=== PATIENT | female | born 1950 | race African-American/Black ===

== ENCOUNTER 2021-05-16 17:44 | Observation (INO) | payer OTHER, MEDICARE ==
[~2021-05-16] VITALS: Ht 154.9 cm; Wt 75.3 kg
[2021-05-16 17:48] VITALS: BP 177/108
[2021-05-16] MEDS ORDERED: NORVASC5 MG PO (17:51)
[2021-05-16] MEDS ORDERED: LISINOPRIL20 MG PO (17:51)
[2021-05-16] MEDS ORDERED: MONTELUKAST SODI4 M1 PO (17:52)
[2021-05-16] MEDS ORDERED: DULOXETINE HCL20 MG PO (17:52)
--- NOTE | 2021-05-16 18:53 | NUR ---
PT STATES SHE IS ON HOME O2 OF 5LNC AT ALL TIMES. PT STATES SHE HAS BEEN OUT OF HER O2 FOR APPROXIMATELY 3 WEEKS D/T NOT BEING ABLE TO GET IT DELIVERED TO HER HOME.
[2021-05-16 19:14] LABS: ABSOLUTE EOSINOPHILS 0.1 thou/uL (0.0-0.7); ABSOLUTE LYMPHOCYTES 2.1 thou/uL (0.8-5.3); ABSOLUTE MONOCYTES 0.6 thou/uL (0.0-1.2); ABSOLUTE NEUTROPHILS 3.1 thou/uL (1.6-8.1); BASOPHILS 0.6 %; EOSINOPHILS 2.1 %; HEMATOCRIT 37.2 % (37.0-47.0); HEMOGLOBIN 12.3 gm/dL (12.0-15.0); LYMPHOCYTES 34.9 %; MCH 30.5 pg (26.0-34.0); MCHC 33.1 g/dL (28.0-37.0); MCV 92.3 fL (80.0-100.0); MONOCYTES 10.2 %; MPV 8.8 fl. (7.2-11.1); NUCLEATED RBCS 0 /100WBC; PLATELET COUNT* 212 thou/uL (150-400); POLYS 52.2 %; RBC 4.03 mil/uL (4.20-5.00); RDW-CV 14.3 % (10.5-14.5); WBC 5.9 thou/uL (4.0-11.0)
[2021-05-16 19:23] LABS: CALCIUM 8.8 mg/dL (8.5-10.1); CREATININE 0.8 mg/dL (0.6-1.3)
[2021-05-16 19:28] LABS: ALBUMIN 3.3 g/dL (3.4-5.0); TOTAL BILIRUBIN 0.4 mg/dL (<0.1-1.0)
[2021-05-16 23:30] VITALS: BP 145/92; BP 158/82
[2021-05-17] MEDS ORDERED: HYDROCODON-ACE1 EA11 PO (02:59)
[2021-05-17] MEDS ORDERED: SPIRONOLACTONE25 MG PO (03:00)
[2021-05-17] MEDS ORDERED: NICOTINE PATCH1 EAC3 TOP (03:02)
[2021-05-17] MEDS ORDERED: ALBUTEROL2.5 MG/0.5 INH (03:05)
[2021-05-17] MEDS ORDERED: IPRAT-ALBUT 0.5-3 ML INH (03:06)
--- NOTE | 2021-05-17 03:27 | NUR ---
PT ALERT ORIENTED X 4. ADMIT TO ROOM 227 AT 2330. HEPARIN QTT SETTINGS ADJUSTED TO 876 UNITS/HR. DOSE OF POTASSIUM GIVEN. PT REFUSED LAB DRAW FOR TROPONIN. PT TEACHING ABOUT LAB. PT STATED THEY DON'T KNOW WHAT THEY ARE DOING AROUND HERE. NEXT PTT IS AT 0600. WILL ATTEMPT TO DRAW ALL LABS AT THAT TIME. 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 DENIES PAIN AT THIS TIME. TWO OLD MEDICATION BOTTLES COLLECTED AND PLACED IN PT BIN FOR CHARTERED ACCOUNTANT BY PHARMACY IN THE AM.
[2021-05-17 08:00] VITALS: BP 169/91
[2021-05-17 09:25] LABS: ABSOLUTE LYMPHOCYTES 0.8 thou/uL (0.8-5.3); ABSOLUTE NEUTROPHILS 3.7 thou/uL (1.6-8.1); BASOPHILS 0.3 %; EOSINOPHILS 0.1 %; HEMATOCRIT 40.1 % (37.0-47.0); HEMOGLOBIN 13.1 gm/dL (12.0-15.0); LYMPHOCYTES 18.1 %; MCH 30.1 pg (26.0-34.0); MCHC 32.6 g/dL (28.0-37.0); MCV 92.4 fL (80.0-100.0); MPV 10.7 fl. (7.2-11.1); NUCLEATED RBCS 0 /100WBC; PLATELET COUNT* 226 thou/uL (150-400); POLYS 80.5 %; RBC 4.34 mil/uL (4.20-5.00); RDW-CV 14.3 % (10.5-14.5); WBC 4.6 thou/uL (4.0-11.0)
[2021-05-17 09:32] LABS: CALCIUM 8.9 mg/dL (8.5-10.1); CREATININE 0.7 mg/dL (0.6-1.3); POTASSIUM 4.1 mmol/L (3.5-5.1)
--- NOTE | 2021-05-17 10:46 | NUR ---
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 PT RESIDE AT HOME WITH HER SON. PT USES 0 DME FOR MOBILITY. PT HAS 0 HX OF HH OR SNF. NO CM D/C PLANNING NEEDS ANTICIPATED. CM WILL REMAIN AVAILABLE TO ASSIST AND FOLLOW NEEDED.
--- NOTE | 2021-05-17 11:18 | EKG ---
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 : 1950 Requested By: Henrry Helton Order Number: [id number] MD: Kevin Cardoza Measurements Intervals [place] Rate: 99 P: 59 AR: 171 QRS: -3 QRSD: 111 T: 61 QT: 409 QTc: 525 Interpretive Statements Sinus tachycardia Multiple ventricular premature complexes Probable left atrial enlargement LVH with IVCD and secondary repol abnrm Prolonged QT interval No previous ECG available for comparison Electronically Signed On 05-17-2021 11:18:11 [employer]ATION OFFICER by Kevin Cardoza [email or web address] <ELECTRONICALLY SIGNED> By: Kevin Cardoza MD, FAC 05/17/21 1118 1908 1908 Kevin Cardoza MD, [facility] /EPI
[2021-05-17 12:00] VITALS: BP 171/99
--- NOTE | 2021-05-17 14:43 | NUR ---
ASSUMED CARE OF PT AT 0730. PT A&0X4, COMPLAINED OF A HEADACHE THIS AFTERNOON-TREATED WITH PRN NORCO WITH COMPLETE RELIEF. TRACING SR/ST WITH PVC'S ON THE DIAMOND BLENDER. ON 2L NC SAT UPPER 90'S. DENIES ANY SHORTNESS OF BREATH. HEPARIN GTT INFUSING PER HEPARIN PROTOCOL. REDRAW SCHEDULED FOR 2014. PT UP SBA TO BATHROOM. CARDIO CONSULT IN PLACE. AM ASSESSMENT CHARTED. MEDICATIONS PER SEP. PT REPOSITIONS SELF. HOURLY ROUNDING OBSERVED. BED IN LOW POSITION. CALL LIGHT WITHIN REACH. WILL CONTINUE PLAN OF CARE.
--- NOTE | 2021-05-17 15:15 | CON ---
[address] [address] CONSULTATION Name: PRAVEEN STEWART Room: [place] [address] ADM IN [facility].#: [id number] Admission: 05/16/21 Attend Phys: Severino Obando Discharge: Date of : 50 Report #: [id number] THIS REPORT FOR: cc: FAM - No family physician/PCP FAM - No family physician/PCP Kevin Cardoza MD [facility] ~ DATE OF CONSULTATION: 05/17/2021 CARDIOLOGY CONSULTATION HISTORY OF PRESENT ILLNESS: The patient is a 71-year-old single black female who I was asked to see in the hospital after she had an episode of lightheadedness. The patient has no previous history of heart disease. Unfortunately, she has never been here to [facility] before. She receives her care at the [facility]. She has been a smoker for years. She currently follows with a test skein winder at the [place]. She has a nebulizer and oxygen at home. In the last several days, she has had increasing shortness of breath and cough. 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 She went to bed last night and had breakfast this morning. 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 The patient notes she was standing in the patient's home when she felt lightheaded and fell in the sofa. She called EMS and brought here to [facility] for evaluation. She denied any vomiting, diarrhea or bleeding. She denied any shaking to suggest a seizure. She does note occasional chest tightness. It is not related to exertion or meals. It tended to come and go. It is not related to food. She notes occasional episodes when her heart rate will increase, but she has had no syncope. PAST MEDICAL HISTORY: She has had no surgical procedures. She does have a history of hypertension, COPD. CURRENT MEDICATIONS: Include lisinopril, amlodipine, duloxetine, Singulair inhaler. She takes Lasix for occasional edema. ALLERGIES: She has no known drug allergies. FAMILY HISTORY: Her sister had valvular heart disease. REVIEW OF SYSTEMS: No history of stroke, liver disease, kidney disease or cancer. She saw a psychiatrist in the past for anxiety. No chronic skin condition. PHYSICAL EXAMINATION: GENERAL: Revealed an elderly black female lying in bed. She appeared in no distress. VITAL SIGNS: She had a blood pressure of 140/90, pulse is 100[place] [address] CONSULTATION Name: PRAVEEN STEWART Room: [address]#: [id number] Admission: 05/16/21 Attend Phys: Severino Obando Discharge: Date of : 50 Report #: [id number] afebrile. HEENT: She was anicteric. Conjunctivae pink. Mucous membranes moist. NECK: Veins not distended. No carotid bruits. CHEST: Revealed coarse breath sounds on expiration. HEART: Regular rate and rhythm. S4 gallop, no significant murmur. ABDOMEN: Soft. EXTREMITIES: Had no edema. Dorsalis pedis pulse 3+ bilaterally. SKIN: Cool and dry. NEUROLOGIC: Nonfocal. LABORATORY DATA: ECG on admission showed a sinus rhythm, occasional PVC, left ventricular hypertrophy and repolarization changes. Her workup in the Emergency Room, she had a portable chest x-ray on admission that showed cardiomegaly, clear lung cruz, no infiltrate. She actually had a CT scan of the chest using a PE protocol that showed pulmonary embolus in the right lung and subsegmental branches in the left, and left lower lobes. Her laboratory, creatinine 0.7, glucose is 170. Her high sensitivity troponin was 230 on admission, is now 199. BNP 2022, hematocrit 41.1. Her COVID antigen stat test was negative. The patient does note that she did not have COVID-19 and has been vaccinated twice in the past. IMPRESSION AND RECOMMENDATIONS: 1. Chest pain. Atypical for angina. No acute ECG changes. Suspect noncardiac. She is noted to have borderline troponin, which might be possibly secondary to pulmonary embolus. I would recommend an echocardiogram. 2. Pulmonary embolus. Recommend venous duplex scan. Recommend anticoagulation. 3. Chronic obstructive pulmonary disease. The patient is followed at the [facility]. She has oxygen at home. 4. Tobacco abuse. 5. Hypertension. The patient is on a calcium rock and SHIRA inhibitor. 6. History of anxiety disorder. The patient is followed by psychiatry. <ELECTRONICALLY SIGNED> By: Kevin Cardoza MD, FACC 05/17/21 1515 1151 [id number] Tita Cardoza MD, FACC /nt
--- NOTE | 2021-05-17 15:41 | 2DMMODE ---
[place] [address] 2 D/M-MODE ECHOCARDIOGRAM Name: PRAVEEN STEWART Room: [place] [address] ADM IN [facility]#: [id number] Admission: 05/16/21 Attend Phys: Bret Torrez Discharge: Date of : 50 Date of Service: 05/17/21 1540 Report #: [id number] THIS REPORT FOR: cc: FAM - No family physician/PCP FAM - No family physician/PCP Kevin Cardoza MD [facility] ~ APPROVED REPORT Study performed: 05/17/2021 14:57:04 EXAM: Comprehensive 2D, Doppler, and color-flow Echocardiogram Patient Location: In-Patient Room #: 227 Status: routine BSA: 1.74 HR: 109 bpm BP: 169/91 mmHg Rhythm: NSR Other Information Study Quality: Excellent Indications Pulmonary Embolism 2D Dimensions IVSd: 11.19 (7-11mm) LVOT Diam: 20.75 (18-24mm) LVDd: 46.96 mm PWd: 9.96 (7-11mm) Ascending Ao: 33.88 (22-36mm) LVDs: 41.90 (25-40mm) Aortic Root: 31.94 mm Volumes Left Atrial Volume (Systole) LA ESV Index: 55.10 mL/m2 Aortic Valve AoV Peak Shivam.: 1.66 m/s AO Peak Gr.: 11.05 mmHg LVOT Max P.00 mmHg AO Mean Gr.: 6.35 mmHg LVOT Mean P.14 mmHg LVOT Max V: 1.32 m/s AO V2 VTI: 27.57 cm LVOT Mean V: 0.81 m/s JONATHAN (VTI): 2.64 cm2 LVOT V1 VTI: 21.52 [place] [address] 2 D/M-MODE ECHOCARDIOGRAM Name: PRAVEEN STEWART Room: [address] IN [facility].#: [id number] Admission: 05/16/21 Attend Phys: Bret Torrez Discharge: Date of : 50 Date of Service: 05/17/21 1540 Report #: [id number] TDI Medial E' Shivam.: 0.08 m/s Lateral E' Shivam.: 0.10 m/s Tricuspid Valve RAP Estimate: 5.00 mmHg TR Peak Gr.: 27.62 mmHg RVSP: 32.00 mmHg PA Pressure: 32.00 mmHg Left Ventricle Left ventricle is mildly dilated. There is global hypokinesis of the left ventricle. There is normal left ventricular wall thickness. Left ventricular systolic function is severely decreased. LVEF is 25-30%. Grade I - abnormal relaxation pattern. Right Ventricle Right ventricle is dilated. The right ventricular systolic function is normal. Atria Left atrium is severely dilated. Right atrium is dilated. Aortic Valve Mild aortic valve sclerosis. Mild aortic regurgitation. There is no aortic valvular stenosis. Mitral Valve The mitral valve is normal in structure. Mild mitral regurgitation. No evidence of mitral valve stenosis. Tricuspid Valve The tricuspid valve is normal in structure. Mild tricuspid regurgitation. estimated pa pressure 35 mm Hg Pulmonic Valve The pulmonary valve is normal in structure. There is no pulmonic valvular regurgitation. Great Vessels The aortic root is normal in size. IVC is normal in size and collapses >50% with inspiration. Pericardium There is no pericardial effusion. <Conclusion> [place] [address] 2 D/M-MODE ECHOCARDIOGRAM Name: PRAVEEN STEWART Room: [address] IN M.R.#: [id number] Admission: 05/16/21 Attend Phys: Bret Torrez Discharge: Date of : 50 Date of Service: 05/17/211539 Report #: [id number] LVEF is 25-30%. Left atrium is severely dilated. Mild aortic valve sclerosis. Mild aortic regurgitation. Mild mitral regurgitation. Mild tricuspid regurgitation. estimated pa pressure 35 mm Hg <ELECTRONICALLY SIGNED> By: Kevin Cardoza MD, [facility] 05/17/211539 39 1540 Kevin Cardoza MD, FACC /INF
[2021-05-17 16:00] VITALS: BP 138/94
[2021-05-17 20:00] VITALS: BP 152/85
[2021-05-18 01:50] VITALS: BP 123/78
--- NOTE | 2021-05-18 03:12 | NUR ---
PT ALERT ORIENTED. HEPARIN QTT INFUSING PER FLOW SHEET. 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 O2 AT 2 LITERS NC.
[2021-05-18 04:38] LABS: CHOLESTEROL 151 mg/dL (<200); HDL CHOLESTEROL 46 mg/dL (>40); LDL CHOLESTEROL 89 mg/dL (<100); TC:HDL 3.3 Ratio (Not establshd); TRIGLYCERIDE 83 mg/dL (<150); VLDL 17 mg/dL (<40)
[2021-05-18 04:59] LABS: SERUM ASSESSMENT CLEAR
[2021-05-18 05:56] VITALS: BP 139/76
[2021-05-18] MEDS ORDERED: ELIQUIS5 MG PO (07:45)
[2021-05-18] MEDS ORDERED: CARVEDILOL3.125 MG PO (07:45)
[2021-05-18 08:00] VITALS: BP 127/80
[2021-05-18 11:30] VITALS: BP 150/106
[2021-05-18] MEDS ORDERED: PREDNISONE 10 M10 MG PO (12:19)
--- NOTE | 2021-05-18 14:36 | EKG ---
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 : 1950 Requested By: Kevin Cardoza Order Number: [id number] Reading MD: Arvind Miguel Measurements Intervals [place] Rate: 93 P: 55 [place]: 165 QRS: 23 QRSD: 90 T: 20 QT: 367 QTc: 457 Interpretive Statements Sinus rhythm Premature ventricular contractions Anteroseptal infarct, old, possible compared to ECG 05/16/2021 19:08:32 Q waves now present Sinus tachycardia no longer present Intraventricular conduction delay no longer present Early repolarization no longer present Prolonged QT interval no longer present Electronically Signed On 05-18-2021 14:36:21 [employer] by Arvind Miguel [email or web address] <ELECTRONICALLY SIGNED> By: Arvind Miguel MD, FACC 05/18/21 1436 7 09 Arvind Miguel MD, FAC /EPI
[2021-05-18 15:34] VITALS: BP 150/106
--- NOTE | 2021-05-18 17:44 | NUR ---
PT TRANSITIONED TO ORAL ANTI COAGULATION- ON ELIQUIS BID. REFER TO EMAR. PT TITRATED TO ROOM AIR SAT UPPER 90'S. DISCHARGE ORDERS RECEIVED. DISCHARGE INSTRUCTIONS, CARE NOTES, E SCRIPTS AND FOLLOW UP APPTS GIVEN TO PT. PT COMMUNICATES UNDERSTANDING OF DISCHARGE TEACHING. IV AND EXTERNAL GRINDER REMOVED. PT DISCHARGED WITH ALL BELONGINGS AND PAPERWORK VIA WHEELCHAIR WITH NURSING STAFF TO FAMILY OWN PERSONAL VEHICLE.
== END 2021-05-18 17:43 | disposition home or self-care (01) ==
LOC: M.ERS 17:44 → M.TBA-ER 22:10 → M.2W 22:10
PROVIDERS: Internal Medicine Cardiovascular Disease; Physician Assistant; ADMIT Internal Medicine; ATTEND Internal Medicine
DX: I26.99 Other pulmonary embolism without acute cor pulmonale (principal); Z20.822 Contact with and (suspected) exposure to COVID-19; J96.10 Chronic respiratory failure, unspecified whether with hypoxia or hypercapnia; J44.9 Chronic obstructive pulmonary disease, unspecified; I11.0 Hypertensive heart disease with heart failure; I50.9 Heart failure, unspecified; F41.9 Anxiety disorder, unspecified; E87.6 Hypokalemia; F17.210 Nicotine dependence, cigarettes, uncomplicated; Z79.899 Other long term (current) drug therapy